=== PATIENT | male | born 1960 | race American Indian/Alaskan Native ===

== ENCOUNTER 2017-02-03 09:51 | Emergency (ER) | payer MEDICARE, MEDICAID ==
[2017-02-03] MEDS ORDERED: Sodium Chloride 0.9% 10 ML Syringe FLUSH PRN (10:10)
--- NOTE | 2017-02-03 10:19 | EDM.PDOC ---
ED HPI GENERAL MEDICAL PROBLEM - General Chief Complaint: Respiratory Problem Stated Complaint: [id number] Pneumonia Time Seen by Provider: 02/03/17 10:04 Source of Information: Reports: Patient, RN, RN Notes Reviewed, Other (staff) History Limitations: Reports: No Limitations - History of Present Illness INITIAL COMMENTS - FREE TEXT/NARRATIVE: Pt presents to the ER with a staff member from his assisted. She states the pt had a temp of 100.4 last evening as well as being pale and diaphoretic. 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 Staff states the pt was seen in the clinic on 01/25/[address] Melendez. He was put on a nasal spray and Augmentin for nasal congestion. Pt denies any pain at this time. Onset: Gradual Onset Date: 02/02/17 Location: Reports: Chest Improves with: Reports: None Worsens with: Reports: None Associated Symptoms: Reports: Chest Pain, Shortness of Breath Middle Chest Pain Score (Numeric/FACES): 2 - Related Data Allergies Allergy/AdvReac Type Severity Reaction Status Date / Time No Known Allergies Allergy Verified 02/03/17 10:14 Home Meds: Home Meds Divalproex Sodium [Depakote] 500 mg PO DAILY 02/03/17 [History] Divalproex Sodium [Depakote] 750 mg PO DAILY 02/03/17 [History] Lisinopril 5 mg PO DAILY 02/03/17 [History] Multivitamin [Multi-Vitamin Daily] 1 tab PO DAILY 02/03/17 [History] traZODone HCl [Trazodone HCl] 100 mg PO DAILY 02/03/17 [History] Past Medical History HEENT History: Reports: Impaired Vision Cardiovascular History: Reports: Hypertension Social & Family History - Tobacco Use Smoking Status *Q: Never Smoker - Caffeine Use Caffeine Use: Reports: Soda - Recreational Drug Use Recreational Drug Use: No ED ROS GENERAL - Review of Systems Review Of Systems: ROS reveals no pertinent complaints other than HPI. ED EXAM, GENERAL - Physical Exam Exam: See Below Exam Limited By: No Limitations General Appearance: Alert, WD/WN, No Apparent Distress Eye Exam: Bilateral Eye: EOMI, Normal Inspection Ears: Normal External Exam, Hearing Grossly Normal Nose: Normal Inspection Throat/Mouth: Normal Inspection, Normal Voice, No Airway Compromise Head: Atraumatic, Normocephalic Neck: Normal Inspection, Supple, Non-Tender, Full Range of Motion Respiratory/Chest: No Respiratory Distress, Lungs Clear, Normal Breath Sounds, No Accessory Muscle Use, Chest Non-Tender Cardiovascular: Normal Peripheral Pulses, Regular Rate, Rhythm, No Edema, No Gallop, No JVD, No Murmur, No Rub Peripheral Pulses: 2+: Radial (L), Radial (R) GI/Abdominal: Normal Bowel Sounds, Soft, Non-Tender, No Organomegaly, No Distention, No Abnormal Bruit, No Mass (Male) Exam: Deferred Rectal (Males) Exam: Deferred Back Exam: Normal Inspection, Full Range of Motion Extremities: Normal Inspection, Normal Range of Motion, Non-Tender, No Pedal Edema, Normal Capillary Refill Neurological: Alert, Oriented, CN II-XII Intact, Normal Cognition, Normal Gait, Normal Reflexes, No Motor/Sensory Deficits Psychiatric: Normal Affect, Normal Mood Skin Exam: Warm, Dry, Intact, Normal Color, No Rash Lymphatic: No Adenopathy EKG INTERPRETATION EKG Date: 02/03/17 Time: 10:10 Rhythm: NSR Rate (Beats/Min): 78 [place]: Normal P-Wave: Present QRS: Normal ST-T: Normal QT: Normal Comparison: NA - No Prior EKG Course - Vital Signs Last Recorded V/S: Last Vital Signs Temp 98.2 F 02/03/17 12:12 Pulse 71 02/03/17 12:12 Resp 16 02/03/17 12:12 BP 129/94 H 02/03/17 12:12 Pulse Ox 92 L 02/03/17 12:12 - Orders/Labs/Meds Orders: Active Orders 24 hr Category Date Time Status EKG Documentation Completion [RC] STAT Care 02/03/17 10:09 Active Peripheral IV Care [RC] . DIRECTED Care 02/03/17 10:10 Active Peripheral IV Insertion Adult [OM.PC] Stat Oth 02/03/17 10:09 Ordered Labs: Laboratory Tests 02/03/17 02/03/17 02/03/17 Range/Units 10:30 10:30 10:30 WBC 8.4 (5.0-10.0) 10^3/uL RBC 4.82 (4.6-6.2) 10^6/uL Hgb 15.3 (14.0-18.0) g/dL Hct 45.5 (40.0-54.0) % MCV 94.4 (80-100) fL MCH 31.7 (27.0-34.0) pg MCHC 33.6 (33.0-35.0) g/dL Plt Count 169 (150-450) 10^3/uL Neut % (Auto) 70.3 (42.2-75.2) % Lymph % (Auto) 17.4 L (20.5-50.1) % [place] % (Auto) 9.9 H (2-8) % Eos % (Auto) 2.0 (1.0-3.0) % Baso % (Auto) 0.4 (0.0-1.0) % PT (9.0-12.0) SEC INR (0.9-1.2) APTT (22.0-34.0) SEC D-Dimer, Quantitative > 5000 H (0-400) ng/mL Sodium 134 L (135-145) mmol/L Potassium 4.2 (3.6-5.0) mmol/L Chloride 98 L (101-111) mmol/L Carbon Dioxide 22.0 (21.0-31.0) mmol/L Anion Gap 18.2 BUN 23 H (7-18) mg/dL Creatinine 1.4 H (0.6-1.3) mg/dL Est Cr Clr Drug Dosing 53.77 mL/min Estimated GFR (MDRD) 52 BUN/Creatinine Ratio 16.42 Glucose 127 H (74-105) mg/dL Calcium 8.5 (8.4-10.2) mg/dl Total Bilirubin 0.7 (0.2-1.0) mg/dL AST 29 (10-42) IU/L ALT 20 (10-60) IU/L Alkaline Phosphatase 40 L (42-121) IU/L Troponin I 0.02 (0.00-0.02) ng/ml Total Protein 6.3 L (6.7-8.2) g/dl Albumin 3.1 L (3.2-5.5) g/dl Globulin 3.2 Albumin/Globulin Ratio 0.97 Urine Color (YELLOW) Urine Appearance (CLEAR) Urine pH (5.0-9.0) Ur Specific [place] (1.005-1.030) Urine Protein (NEGATIVE) Urine Glucose (UA) (NEGATIVE) Urine Ketones (NEGATIVE) Urine Occult Blood (NEGATIVE) Urine Nitrite (NEGATIVE) Urine Bilirubin (NEGATIVE) Urine Urobilinogen (0.2-1.0) mg/dL Ur Leukocyte Esterase (NEGATIVE) Urine RBC /HPF Urine WBC (0-5/HPF) /HPF Ur Epithelial Cells /HPF Amorphous Sediment (0/HPF) /HPF Urine Bacteria (0-FEW/HPF) /HPF Urine Mucus /LPF 02/03/17 02/03/17 02/03/17 Range/Units 10:30 10:30 10:46 WBC (5.0-10.0) 10^3/uL RBC (4.6-6.2) 10^6/uL Hgb (14.0-18.0) g/dL Hct (40.0-54.0) % MCV (80-100) fL MCH (27.0-34.0) pg MCHC (33.0-35.0) g/dL Plt Count (150-450) 10^3/uL Neut % (Auto) (42.2-75.2) % Lymph % (Auto) (20.5-50.1) % [place] % (Auto) (2-8) % Eos % (Auto) (1.0-3.0) % Baso % (Auto) (0.0-1.0) % PT 11.3 (9.0-12.0) SEC INR 1.1 (0.9-1.2) APTT 26.7 (22.0-34.0) SEC D-Dimer, Quantitative (0-400) ng/mL Sodium (135-145) mmol/L Potassium (3.6-5.0) mmol/L Chloride (101-111) mmol/L Carbon Dioxide (21.0-31.0) mmol/L Anion Gap BUN (7-18) mg/dL Creatinine (0.6-1.3) mg/dL Est Cr Clr Drug Dosing mL/min Estimated GFR (MDRD) BUN/Creatinine Ratio Glucose (74-105) mg/dL Calcium (8.4-10.2) mg/dl Total Bilirubin (0.2-1.0) mg/dL AST (10-42) IU/L ALT (10-60) IU/L Alkaline Phosphatase (42-121) IU/L Troponin I (0.00-0.02) ng/ml Total Protein (6.7-8.2) g/dl Albumin (3.2-5.5) g/dl Globulin Albumin/Globulin Ratio Urine Color Yellow (YELLOW) Urine Appearance Clear (CLEAR) Urine pH 5.5 (5.0-9.0) Ur Specific [place] 1.025 (1.005-1.030) Urine Protein 100 H (NEGATIVE) Urine Glucose (UA) Negative (NEGATIVE) Urine Ketones Negative (NEGATIVE) Urine Occult Blood Negative (NEGATIVE) Urine Nitrite Negative (NEGATIVE) Urine Bilirubin Negative (NEGATIVE) Urine Urobilinogen 0.2 (0.2-1.0) mg/dL Ur Leukocyte Esterase Negative (NEGATIVE) Urine RBC 0-5 /HPF Urine WBC 0-5 (0-5/HPF) /HPF Ur Epithelial Cells Rare /HPF Amorphous Sediment Few (0/HPF) /HPF Urine Bacteria Rare (0-FEW/HPF) /HPF Urine Mucus Moderate H /LPF Meds: Medications Discontinued Medications Generic Name Dose Route Start Last Admin Trade Name Freq PRN Reason Stop Dose Admin Heparin Sodium (Porcine) 7,640 units 02/03/17 12:57 02/03/17 13:14 Heparin Sodium IVPUSH 02/03/17 12:58 7,640 units .BOLUS ONE Administration Heparin Sodium/Dextrose 25,000 units in 500 mls @ 0 mls/hr 02/03/17 12:59 13:14 Heparin 25,000 Units In D5w 500 Ml IV 18.01 units/kg/hr TITRATE ADIS 33.4 mls/hr 18 UNITS/KG/HR Administration Iopamidol 100 ml 02/03/17 11:24 02/03/17 11:58 Isovue-370 (76%) IVPUSH 02/03/17 11:25 75 ml ONETIME ONE Administration Sodium Chloride 10 ml 02/03/17 10:10 Saline Flush FLUSH ASDIRECTED PRN Keep Vein Open - Radiology Interpretation Free Text/Narrative:: Chest CT with contrast: PE's found in the the mainstem pulmonary arteries as well as a mass in the left lung apex. See Rad report Departure - Departure Time of Disposition: 13:38 Disposition: DC/Tfer to Acute Hospital 02 Condition: Fair, Serious Clinical Impression: Pulmonary emboli Qualifiers: Pulmonary embolism type: other Chronicity: acute Acute cor pulmonale presence: without acute cor pulmonale Qualified Code(s): I26.99 - Other pulmonary embolism without acute cor pulmonale - Discharge Information Referrals: Jh Blair MD [Primary Care Provider] - Forms: ED Department Discharge, Interfacility Transfer EMTALA - My Orders Last 24 Hours: My Active Orders 02/03/17 10:09 EKG Documentation Completion [RC] STAT Peripheral IV Insertion Adult [OM.PC] Stat 02/03/17 10:10 Peripheral IV Care [RC] . DIRECTED - Assessment/Plan Last 24 Hours: My Active Orders 02/03/17 10:09 EKG Documentation Completion [RC] STAT Peripheral IV Insertion Adult [OM.PC] Stat 02/03/17 10:10 Peripheral IV Care [RC] . DIRECTED
[2017-02-03] MEDS ORDERED: Iopamidol 755 Mg/ML 100 ML Bottle IVPUSH ONE (11:24)
--- NOTE | 2017-02-03 12:16 | CR ---
Clinical history: 56-year-old male chest pain, shortness of breath and serum D dimer greater than 500 0. Interpretation: Coarse accentuation of perihilar lung markings with asymmetrically prominent right hi lum and elevation of the ipsilateral right hemidiaphragm (hepatic flexure of bowel interposed between the liver and hemidiaphragm). Normal cardiac silhouette without alveolar edema or dependent effusion. Mild kyphoscoliosis. Healed fracture deformity posterior lateral right seventh rib. No discrete parenchymal lung nodule or mass lesion and no focal lobar pneumonia or atelectasis/collap se.
--- NOTE | 2017-02-03 12:37 | CT ---
Clinical history: 56-year-old 210 pound male with shortness of breath, chest pain and serum D dimer g reater than 5000. Plain chest radiograph unremarkable. Scan technique: Volume acquisition of data from the chest (bony thorax, lungs and mediastinum) obtain ed during intravenous ministration 75 cc nonionic Isovue 370 contrast via injector (5 cc/s) while pat ient was lying supine on the Siemens multi slice CT scanner [place], [place]. All data archived in the PACS system for storage, reformatting axial/sagittal/coronal planes and study (lung/mediastinal windows). Interpretation: Abnormal. 1. *Extensive intraluminal thrombus compromising the mainstem (first tier) pulmonary arteries, bilate rally and extending into the second tier branches pulmonary arteries to both lower lobes versus encas ement by mediastinal soft tissues (doubtful). 2. Normal cardiac silhouette. No pericardial effusion, signs of alveolar edema or dependent pleural e ffusion. 3. Suspicious 2 cm diameter peripheral parenchymal lung mass, left lung apex. No other lung mass, sig nificant hilar/mediastinal lymphadenopathy, malignant effusion, lobar infiltrate or atelectasis. 4. Normal caliber thoracic aorta. Gallbladder, liver, stomach and spleen unremarkable. CONCLUSION: Pulmonary thrombosis. Mass lesion left lung apex.
[2017-02-03] MEDS ORDERED: Heparin Sodium/D5W 25,000 UNITS/500 ML BAG IV SCH (12:59)
[2017-02-03] MEDS: Heparin Sodium 5,000 Units/ML Vial IVPUSH ONE ×2 (13:06→13:14)
--- NOTE | 2017-02-03 16:21 | EKG ---
02/03/2017 - RUDI MIKE - EKG done on the 56-year-old male, showing sinus rhythm, heart rate of 78 beats per minute. Normal axis. T-wave inversions noted on leads V2 to V4. T wave changes noted on inferior leads. [facility] /[id number] MTDD
== END 2017-02-03 13:30 ==
LOC: DL.ED 09:51
DX: I26.99 Other pulmonary embolism without acute cor pulmonale (principal); I10 Essential (primary) hypertension; Z79.899 Other long term (current) drug therapy
CPT/HCPCS: 36415; 71020; 71260; 80053; 81001; 84484; 85025; 85379; 85610; 85730; 93005; 96365; 96376; 99285; J1644; Q9967; 93010

== ENCOUNTER 2020-02-25 05:49 | Day surgery (SDC) | payer MEDICARE, MEDICAID ==
[2020-02-25] MEDS ORDERED: fentaNYL 100 MCG/2 ML SDV IV ONE ×3 (05:50→07:01)
[2020-02-25] MEDS ORDERED: Midazolam 1 MG/ML 2 ML SDV IV ONE ×3 (05:50→07:02)
[2020-02-25] MEDS ORDERED: Dextrose 5%-0.45% NaCl 1,000 ML IV SCH (06:00)
[2020-02-25] MEDS ORDERED: Sodium Chloride 0.9% 10 ML Syringe FLUSH PRN (06:00)
[2020-02-25] MEDS ORDERED: Midazolam 1 MG/ML 2 ML SDV ONE (06:11)
[2020-02-25] MEDS ORDERED: fentaNYL 100 MCG/2 ML SDV ONE (06:11)
--- NOTE | 2020-02-25 07:58 | OR ---
DATE: 02/25/2020 PROCEDURE: Total colonoscopy. INSTRUMENT USED: [id number]-H190DL Olympus video colonoscope. PREMEDICATIONS: Fentanyl 100 mcg intravenous, Versed 2 mg intravenous, O2 nasal cannula, initially Ventimask used. The procedure was done under pulse oximetry, BP recording, and lunchroom monitor. INDICATION: The patient with previous colon surgery for volvulus with progressive constipation unexplained and not responsive to medical measures. Colonoscopic examination is done for detection of any polypoid lesions and removal, endoscopic hemostasis therapy if needed. DESCRIPTION OF PROCEDURE: Initial rectal exam was unremarkable. Rigid anoscopy showed small internal hemorrhoids without bleeding from them. The colonoscope was passed with ease up to the ileocecal area. Photographs were taken of the normal-appearing cecum identified by landmarks of appendiceal orifice and double- bulged ileocecal folds. No bleeding was noted from any of the visualized areas at the commencement of the examination. The bowel preparation was found to be adequate, [place] scale 3 in the right colon and 2 in transverse and left colon, total score 7. No stricture. No vascular ectasia. No large isolated ulcerations seen. No evidence of diffuse inflammatory bowel disease in the form of friability, contact bleeding, or ulcerations. No polyp or tumor mass identified. Probing the proximal sides of folds and flexures using adequate distention and clearing up the stool material, withdrawal of the scope was made. Cecum to rectum time over 6 minutes. No bleeding was noted from any of the visualized areas at the completion of examination. IMPRESSION: Internal hemorrhoids. The patient tolerated the procedure well. [facility] /[id number]
== END 2020-02-25 09:23 | disposition home or self-care (01) ==
LOC: DL.ENDO 05:49
PROVIDERS: ATTEND Internal Medicine Gastroenterology
DX: K59.00 Constipation, unspecified (principal); K64.8 Other hemorrhoids; I12.9 Hypertensive chronic kidney disease with stage 1 through stage 4 chronic kidney disease, or unspecified chronic kidney disease; N18.9 Chronic kidney disease, unspecified
CPT/HCPCS: J2250; J3010; J7042

== ENCOUNTER 2020-03-04 19:54 | Emergency (ER) | payer MEDICARE, MEDICAID ==
--- NOTE | 2020-03-04 20:20 | EDM.PDOC ---
ED HPI GENERAL MEDICAL PROBLEM - General Time Seen by Provider: 03/04/20 20:00 Source of Information: Reports: Patient, EMS, EMS Notes Reviewed, Old Records, RN, RN Notes Reviewed, Other (Staff from [facility]; Records from [facility]) History Limitations: Reports: Language Barrier - History of Present Illness INITIAL COMMENTS - FREE TEXT/NARRATIVE: Patient presents to the ED via EMS for complaints of chest pain. The patient is a [facility] client who is "checked up" on daily in his home. [facility] staff member who notified EMS is currently present with the patient. She reports he was his normal talkative self this evening and assisted with cooking supper, as per normal. She notes she and the patient were eating supper when she noted he became less responsive and appeared "lyman. She applied his PRN oxygen at 2L but noted minimal improvement in his responsiveness so she called EMS. She notes he is more alert currently than he was at home prior to her calling. The patient reports pain in his chest and shortness of breath that he has felt "..for about one month." He states he has talked to his director about this pain. He denies fever, shaking chills, headache, fatigue, palpitat ions, nausea, or vomiting. He does attest to chronic, mild loose stools. He denies tobacco, alcohol, or recreational drug use. The staff member from [facility] reports the patient has a history of pulmonary embolism for which he takes Jantoven and Adempas. Mid-Sternal Chest Pain Score (Numeric/FACES): 8 - Related Data Allergies Allergy/AdvReac Type Severity Reaction Status Date / Time ibuprofen AdvReac Other Verified 03/04/20 20:00 nitroglycerin AdvReac Other Verified 03/04/20 20:00 Home Meds: Home Meds Divalproex Sodium [Depakote] 500 - 1,000 mg PO .500INAMAND 1000ATHS 02/03/17 [History] Lisinopril 5 mg PO DAILY 02/03/17 [History] traZODone HCl [Trazodone HCl] 100 mg PO DAILY 02/03/17 [History] Carboxymethylcellulose Sodium [Thera Tears] 2 drop EYEBOTH ASDIRECTED 02/21/20 [History] Ciclopirox 1 applic TOP BEDTIME 02/21/20 [History] Multivitamin-Min/Iron/FA/Vit K [Multi-Day Plus Minerals Tablet] 1 tab PO DAILY 02/21/20 [History] Riociguat [Adempas] 2.5 mg PO TID 02/21/20 [History] Warfarin Sodium [Jantoven] 4 mg PO ASDIRECTED 02/21/20 [History] bisacodyL [Bisacodyl] 5 mg PO BEDTIME 02/21/20 [History] levOCARNitine [l-Carnitine] 500 - 1,000 mg PO .[id number] 02/21/20 [History] Past Medical History HEENT History: Reports: Cataract, Impaired Vision Cardiovascular History: Reports: Blood Clots/VTE/DVT, Hypertension Respiratory History: Reports: Sleep Apnea Gastrointestinal History: Reports: Chronic Constipation Genitourinary History: Reports: Chronic Renal Insuffiency EMBEDDED SYSTEMS DEVELOPER History: Musculoskeletal History: Reports: None Neurological History: Reports: None Psychiatric History: Reports: Other (See Below) Other Psychiatric History: bipolar. INTELLECTULAR DISABILITIES Endocrine/Metabolic History: Reports: None Hematologic History: Reports: None Immunologic History: Reports: None Oncologic (Cancer) History: Reports: None Dermatologic History: Reports: None - Infectious Disease History Infectious Disease History: Reports: None Other Infectious Disease History: Health hx unknown, resides at retirement. Had Covid 19 in Oct 2019 - Past Surgical History Head Surgeries/Procedures: Reports: None HEENT Surgical History: Reports: None Cardiovascular Surgical History: Reports: None Respiratory Surgical History: Reports: None GI Surgical History: Reports: None Male Surgical History: Reports: None Neurological Surgical History: Reports: None Musculoskeletal Surgical History: Reports: None Social & Family History - Tobacco Use Tobacco Use Status *Q: Never Tobacco User Second Hand Smoke Exposure: No - Caffeine Use Caffeine Use: Reports: None - Recreational Drug Use Recreational Drug Use: No ED ROS GENERAL - Review of Systems Review Of Systems: Comprehensive ROS is negative, except as noted in HPI. ED EXAM, GENERAL - Physical Exam Exam: See Below Exam Limited By: Other (Hx of cognitive impairment) General Appearance: Alert, No Apparent Distress Eye Exam: Bilateral Eye: EOMI, Normal Inspection, PERRL (4mm) Throat/Mouth: Normal Inspection, Normal Voice, No Airway Compromise Head: Atraumatic, Normocephalic Neck: Normal Inspection, Supple, Non-Tender, Full Range of Motion. No: Lymphadenopathy (L), Lymphadenopathy (R) Respiratory/Chest: No Accessory Muscle Use, Decreased Breath Sounds, Other (On 2L of O2 via NC). No: Chest Non-Tender, Crackles, Rales, Rhonchi, Wheezing, Stridor, Pleural Rub, Accessory Muscle Use Cardiovascular: Normal Peripheral Pulses, Regular Rate, Rhythm, No Edema, No Gallop, No JVD, No Murmur, No Rub Peripheral Pulses: 2+: Radial (L), Radial (R) GI/Abdominal: Normal Bowel Sounds, Soft, Non-Tender, No Distention, No Mass (Male) Exam: Deferred Rectal (Males) Exam: Deferred Back Exam: Normal Inspection, Full Range of Motion Extremities: Normal Range of Motion, No Pedal Edema, Normal Capillary Refill, Elvira's Sign (Patient states pain to the back of both lower extremities; No erythema or edema appreciated) Neurological: Alert, Oriented, Normal Gait, No Motor/Sensory Deficits, Slow to Respond Psychiatric: Normal Mood, Flat Affect Skin Exam: Warm, Dry, Intact, Normal Color, No Rash. No: Ecchymosis, Erythema, Jaundice, Mottled, Pallor, Petechiae, Rash #1 Interpretation EKG Date: 03/04/20 Time: 19:58 Rhythm: NSR Rate (Beats/Min): 73 [place]: LAD-Left [place] Deviation P-Wave: Present QRS: Normal ST-T: Normal QT: Normal Comparison: No Change EKG Interpretation Comments: NSR: T-Wave inversion in V2 and V4: No evidence of acute ischemia Course - Vital Signs Last Recorded V/S: Last Vital Signs Temp 98.4 F 03/04/20 19:54 Pulse 71 03/04/20 19:54 Resp 18 03/04/20 19:54 BP 113/65 03/04/20 19:54 Pulse Ox 91 L 03/04/20 19:54 - Orders/Labs/Meds Orders: Active Orders 24 hr Category Date Time Status EKG Documentation Completion [RC] STAT Care 03/04/20 19:54 Active Labs: Laboratory Tests 03/04/20 03/04/20 03/04/20 Range/Units 20:06 20:06 20:06 WBC 6.5 (5.0-10.0) 10^3/uL RBC 5.06 (4.6-6.2) 10^6/uL Hgb 16.9 D (14.0-18.0) g/dL Hct 47.4 (40.0-54.0) % MCV 93.7 (80-100) fL MCH 33.4 (27.0-34.0) pg MCHC 35.7 H (33.0-35.0) g/dL Plt Count 147 L (150-450) 10^3/uL Neut % (Auto) 57.3 (42.2-75.2) % Lymph % (Auto) 29.1 (20.5-50.1) % Tate % (Auto) 10.5 H (2-8) % Eos % (Auto) 2.6 (1.0-3.0) % Baso % (Auto) 0.5 (0.0-1.0) % PT 29.1 H D (9.0-12.0) SEC INR 3.1 H (0.9-1.2) APTT 32.0 (22.0-34.0) SEC D-Dimer, Quantitative 1930 H (0-400) ng/mL Sodium 137 (136-145) mmol/L Potassium 4.1 (3.5-5.1) mmol/L Chloride 103 (98-107) mmol/L Carbon Dioxide 27 (21-32) mmol/L Anion Gap 11.1 (7-13) mEq/L BUN 21 H (7-18) mg/dL Creatinine 1.28 (0.70-1.30) mg/dL Est Cr Clr Drug Dosing TNP Estimated GFR (MDRD) 57 BUN/Creatinine Ratio 16.4 (No establ ref range) Glucose 97 (74-99) mg/dL Lactic Acid (0.4-2.0) mmol/L Calcium 8.2 L (8.5-10.1) mg/dL Magnesium 1.9 (1.8-2.4) mg/dL Total Bilirubin 0.5 (0.2-1.0) mg/dL AST 11 L (15-37) U/L ALT 21 (16-63) U/L Alkaline Phosphatase 52 (46-116) U/L Lactate Dehydrogenase 212 (85-227) U/L Troponin I < 0.017 (0.000-0.056) ng/mL C-Reactive Protein < 0.2 (0.0-0.9) mg/dL B-Natriuretic Peptide 6 (0-100) pg/ml Total Protein 6.7 (6.4-8.2) g/dL Albumin 3.4 (3.4-5.0) g/dL Globulin 3.3 Albumin/Globulin Ratio 1.0 01/26/21 Range/Units 20:06 WBC (5.0-10.0) 10^3/uL RBC (4.6-6.2) 10^6/uL Hgb (14.0-18.0) g/dL Hct (40.0-54.0) % MCV (80-100) fL MCH (27.0-34.0) pg MCHC (33.0-35.0) g/dL Plt Count (150-450) 10^3/uL Neut % (Auto) (42.2-75.2) % Lymph % (Auto) (20.5-50.1) % Tate % (Auto) (2-8) % Eos % (Auto) (1.0-3.0) % Baso % (Auto) (0.0-1.0) % PT (9.0-12.0) SEC INR (0.9-1.2) APTT (22.0-34.0) SEC D-Dimer, Quantitative (0-400) ng/mL Sodium (136-145) mmol/L Potassium (3.5-5.1) mmol/L Chloride (98-107) mmol/L Carbon Dioxide (21-32) mmol/L Anion Gap (7-13) mEq/L BUN (7-18) mg/dL Creatinine (0.70-1.30) mg/dL Est Cr Clr Drug Dosing Estimated GFR (MDRD) BUN/Creatinine Ratio (No establ ref range) Glucose (74-99) mg/dL Lactic Acid 2.0 (0.4-2.0) mmol/L Calcium (8.5-10.1) mg/dL Magnesium (1.8-2.4) mg/dL Total Bilirubin (0.2-1.0) mg/dL AST (15-37) U/L ALT (16-63) U/L Alkaline Phosphatase (46-116) U/L Lactate Dehydrogenase (85-227) U/L Troponin I (0.000-0.056) ng/mL C-Reactive Protein (0.0-0.9) mg/dL B-Natriuretic Peptide (0-100) pg/ml Total Protein (6.4-8.2) g/dL Albumin (3.4-5.0) g/dL Globulin Albumin/Globulin Ratio Meds: Medications Discontinued Medications Generic Name Dose Route Start Last Admin Trade Name Freq PRN Reason Stop Dose Admin Al Hydroxide/Mg Hydroxide 30 ml 03/04/20 20:34 03/04/20 20:43 Gi Cocktail PO 03/04/20 20:35 30 ml ONETIME ONE Administration - Radiology Interpretation Free Text/Narrative:: [facility] Final Radiology Report with Addendum Call: [phone] assistance Online chat: [email or web address] Name: RUDI MIKE Age: 59Years M Date: 03/04/2020 SSN: -- : 1960 Study: CT CHEST W CONT Requesting Physician: Georgia Ma Images: [id number] Addl Studies: Provided Clinical History: Chest pain; Hx Pulmonary embolism; D-Dimer 193 Contrast: With Contrast Medium: isovue 370 Contrast Amount: 75 mL Contrast Method: Intravenous (IV) Page 1 of 2 Addendum created by Joni Contreras MD on 03/04/2020 9:57 PM Central Time ([place] & [place]): THIS REPORT CONTAINS FINDINGS THAT MAY BE CRITICAL TO PATIENT CARE. The findings were verbally communicated via telephone conference with Georgia Ma at 9:56 PM RADIO PRODUCER on 03/04/2020. The findings were acknowledged and understood. Initial Report created on 03/04/2020 9:54 PM Central Time ([place] & [place]): PROCEDURE INFORMATION: Exam: CT Chest With Contrast; Diagnostic Exam date and time: 03/04/2020 9:26 PM Age: 59 years old Clinical indication: Other: Chest pain; HX pulmonary embolism; D-dimer 1930 TECHNIQUE: Imaging protocol: Diagnostic computed tomography of the chest with intravenous contrast. Radiation optimization: All CT scans at this facility use at least one of these dose optimization techniques: automated exposure control; mA and/or kV adjustment per patient size (includes targeted exams where dose is matched to clinical indication); or iterative reconstruction. Contrast material: ISOVUE 370; Contrast volume: 75 ml; Contrast route: INTRAVENOUS (IV); COMPARISON: No relevant prior studies available. FINDINGS: Lungs: No significant ground-glass densities, linear interstitial pulmonary thickening, or consolidation. Pleural space: There is no significant effusion. No pneumothorax. No mass, plaque or calcification. Heart: Normal heart size. No pericardial effusion. Pulmonary arteries: Eccentric soft tissue along left and left inter lobar pulmonary arteries. Soft tissue obliteration of left lower lobe pulmonary arteries. Eccentric soft tissue along right inter lobar RUDI MIKE | Final Radiology Report CONFIDENTIALITY STATEMENT This report is intended only for use by the referring physician, and only in accordance with law. If you received this in error, call [phone]. Page 2 of 2 pulmonary artery. There is central prominance of the pulmonary arterial tree consistent with longstanding pulmonary artery hypertension. Aorta: No aortic aneurysm. Lymph nodes: No enlarged axillary, mediastinal, or hilar lymph nodes. Stomach and bowel: Stomach is markedly distended with heterogeneous material, presumably food. Dilation of transverse colon to 7 cm. Bones/joints: Age appropriate. No acute fracture. No suspicious lytic or osteosclerotic lesions. Soft tissues: Unremarkable. IMPRESSION: 1. Findings are most consistent with subacute bilateral pulmonary embolism. 2. No saddle embolus or right heart strain. 3. Signs of chronic pulmonary artery hypertension. Thank you for allowing us to participate in the care of your patient. Dictated and Authenticated by: Joni Contreras MD 03/04/2020 9:54 PM Central Time ([place] & [place]) - Re-Assessments/Exams Free Text/Narrative Re-Assessment/Exam: 03/04/20 Patient given three doses of Nitro en route via EMS. Patient scheduled to receive Adempas at 2200, will instruct care givers to hold this medication tonight. Patient continues to voice complaints of pain to the chest that he characterizes as "sharp," will attempt GI Cocktail as he was eating when this pain began. Blood pressure remains stable at 108/73(74). EKG reveal NSR with LAD. Troponin negative. D-Dimer elevated at 1930; review of records from 2018 shows complete resolution of previous PEs. Review of records from [facility] appears to show that the patient has not gotten his Jantoven for five days. INR remains appropriate at 3.1. Will obtain PE study given elevated d-dimer and physical exam. Patient notes an improvement in pain following GI cocktail. PE study reveals areas consistent with subacute pulmonary embolism in the left lobar pulmonary arteries. [facility] director at beside with patient, given results of PE study and labs. 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 Departure - Departure Time of Disposition: 22:06 Disposition: Home, Self-Care 01 Condition: Good Clinical Impression: Heartburn, Elevated d-dimer Chronic pulmonary embolism Qualifiers: Pulmonary embolism type: other Acute cor pulmonale presence: without acute cor pulmonale Qualified Code(s): I27.82 - Chronic pulmonary embolism Instructions: Essence, [id number] Additional Instructions: 1.) Keep your appointment with your provider at the [facility] for March 24. 2.) Do not take your Adempas tonight; restart this medication tomorrow morning. 3.) You may trial tums or Pepcid if this pain returns while eating. 4.) Return to your primary care provider, or the emergency room, with any chest pain or shortness of breath that does not improve with medications. Sepsis Event Note (ED) - Evaluation Sepsis Screening Result: No Definite Risk - Focused Exam Vital Signs: Vital Signs Temp Pulse Resp BP Pulse Ox 03/04/20 19:54 98.4 F 71 18 113/65 91 L - My Orders Last 24 Hours: My Active Orders 03/04/20 19:54 EKG Documentation Completion [RC] STAT - Assessment/Plan Last 24 Hours: My Active Orders 03/04/20 19:54 EKG Documentation Completion [RC] STAT
[2020-03-04 20:41] LABS: ANION GAP 11.1 mEq/L (7-13); CHLORIDE,CL 103 mmol/L (98-107); SODIUM,NA 137 mmol/L (136-145)
[2020-03-04] MEDS: GI Cocktail Oral Solution 30 ML PO ONE (20:43)
[2020-03-04] MEDS: Iopamidol 755 Mg/ML 100 ML Bottle IVPUSH ONE (21:26)
--- NOTE | 2020-03-04 21:54 | CT ---
PROCEDURE INFORMATION: Exam: CT Chest With Contrast; Diagnostic Exam date and time: 03/04/2020 9:26 PM Age: 59 years old Clinical indication: Other: Chest pain; HX pulmonary embolism; D-dimer 1930 TECHNIQUE: Imaging protocol: Diagnostic computed tomography of the chest with intravenous contrast. Radiation optimization: All CT scans at this facility use at least one of these dose optimization techniques: automated exposure control; mA and/or kV adjustment per patient size (includes targeted exams where dose is matched to clinical indication); or iterative reconstruction. Contrast material: ISOVUE 370; Contrast volume: 75 ml; Contrast route: INTRAVENOUS (IV); COMPARISON: No relevant prior studies available. FINDINGS: Lungs: No significant ground-glass densities, linear interstitial pulmonary thickening, or consolidation. Pleural space: There is no significant effusion. No pneumothorax. No mass, plaque or calcification. Heart: Normal heart size. No pericardial effusion. Pulmonary arteries: Eccentric soft tissue along left and left inter lobar pulmonary arteries. Soft tissue obliteration of left lower lobe pulmonary arteries. Eccentric soft tissue along right inter lobar pulmonary artery. There is central prominance of the pulmonary arterial tree consistent with longstanding pulmonary artery hypertension. Aorta: No aortic aneurysm. Lymph nodes: No enlarged axillary, mediastinal, or hilar lymph nodes. Stomach and bowel: Stomach is markedly distended with heterogeneous material, presumably food. Dilation of transverse colon to 7 cm. Bones/joints: Age appropriate. No acute fracture. No suspicious lytic or osteosclerotic lesions. Soft tissues: Unremarkable. IMPRESSION: 1. Findings are most consistent with subacute bilateral pulmonary embolism. 2. No saddle embolus or right heart strain. 3. Signs of chronic pulmonary artery hypertension.
== END 2020-03-04 22:13 | disposition home or self-care (01) ==
LOC: DL.ED 19:54
DX: I27.82 Chronic pulmonary embolism (principal); R12 Heartburn; R79.1 Abnormal coagulation profile; I12.9 Hypertensive chronic kidney disease with stage 1 through stage 4 chronic kidney disease, or unspecified chronic kidney disease; N18.9 Chronic kidney disease, unspecified; Z88.6 Allergy status to analgesic agent; Z88.8 Allergy status to other drugs, medicaments and biological substances; Z79.01 Long term (current) use of anticoagulants; Z79.899 Other long term (current) drug therapy
CPT/HCPCS: 36415; 71260; 80053; 83605; 83615; 83735; 83880; 84484; 85025; 85379; 85610; 85730; 86140; 93005; 93010; 99284; 99285; A9270; Q9967

== ENCOUNTER 2021-12-11 22:14 | Emergency (ER) | payer MEDICARE, MEDICAID ==
[2021-12-11 23:09] LABS: ANION GAP 12.4 mEq/L (7-13); CHLORIDE,CL 103 mmol/L (98-107); SODIUM,NA 138 mmol/L (136-145)
[2021-12-11 23:12] LABS: ESTIMATED GFR 54 mL/min (>=60)
[2021-12-11 23:31] LABS: CORONAVIRUS COVID-19 NAA POSITIVE (NEGATIVE)
[2021-12-12] MEDS ORDERED: Furosemide 40 MG/4 ML VIAL IVPUSH ONE (00:40)
[2021-12-12] MEDS ORDERED: Iopamidol 755 Mg/ML 100 ML Bottle IVPUSH ONE (00:41)
[2021-12-12] MEDS ORDERED: Heparin Sodium 5,000 Units/ML Vial IVPUSH ONE (05:11)
[2021-12-12] MEDS ORDERED: Heparin Sodium/0.45% NaCl 25,000 UNITS/500 ML BAG IV SCH (05:15)
[2021-12-12] MEDS ORDERED: Dexamethasone 4 MG/ML SDV IVPUSH ONE (05:25)
== END 2021-12-12 08:20 ==
LOC: DL.ED 22:14
DX: U07.1 COVID-19 (principal); I26.99 Other pulmonary embolism without acute cor pulmonale; G31.84 Mild cognitive impairment of uncertain or unknown etiology; I10 Essential (primary) hypertension; Z88.6 Allergy status to analgesic agent; Z88.8 Allergy status to other drugs, medicaments and biological substances; Z79.899 Other long term (current) drug therapy; Z79.01 Long term (current) use of anticoagulants
CPT/HCPCS: 0240U; 36415; 71045; 71275; 80053; 82150; 83605; 83615; 83690; 83735; 83880; 84484; 85025; 85379; 85610; 85730; 86140; 87040; 93005; 96365; 96366; 96375; 96376; 99285; J1100; J1644; J1940; Q9967

== ENCOUNTER 2023-01-11 08:59 | Observation (INO) | payer MEDICARE, MEDICAID ==
[2023-01-11] MEDS ORDERED: Sodium Chloride 0.9% 1,000 ML IV ONE (09:04)
[2023-01-11] MEDS ORDERED: Ondansetron 4 MG/2 ML SDV IV ONE (09:04)
[2023-01-11] MEDS: Sodium Chloride 0.9% 10 ML Syringe FLUSH PRN (09:15)
[2023-01-11 09:36] LABS: INR 4.2 (0.9-1.2)
[2023-01-11 09:41] LABS: BASOPHILS PERCENT AUTO 0.2 % (0.0-1.0); EOSINOPHILS PERCENT AUTO 1.2 % (1.0-3.0); HEMATOCRIT 44.8 % (40.0-54.0); HEMOGLOBIN 15.7 g/dL (14.0-18.0); LYMPHOCYTES PERCENT AUTO 22.3 % (20.5-50.1); MEAN CORPUSCULAR HEMOGLOBIN 34.2 pg (27.0-34.0); MEAN CORPUSCULAR VOLUME 97.6 fL (80-100); MONOCYTES PERCENT AUTO 11.3 % (2-8); PLATELET COUNT,PLT 66 10^3/uL (150-450); RED BLOOD CELL COUNT 4.59 10^6/uL (4.6-6.2)
[2023-01-11 09:45] LABS: ALANINE AMINOTRANSFERASE,ALT 15 U/L (16-63); ALBUMIN 2.9 g/dL (3.4-5.0); ALKALINE PHOSPHATASE 56 U/L (46-116); ANION GAP 11.8 mEq/L (7-13); ASPARTATE AMNIOTRANSFERASE,AST 19 U/L (15-37); BILIRUBIN TOTAL 0.5 mg/dL (0.2-1.0); BLOOD UREA NITROGEN,BUN 19 mg/dL (7-18); BUN/CREATININE RATIO 13.3 (No establ ref range); CALCIUM 8.4 mg/dL (8.5-10.1); CARBON DIOXIDE,CO2 25 mmol/L (21-32); CHLORIDE,CL 102 mmol/L (98-107); CREATININE 1.43 mg/dL (0.70-1.30); EST CRCL DRUG DOSING (CG) 48.79 mL/min; GLUCOSE RANDOM 126 mg/dL (70-99); LIPASE 24 U/L (16-77); MAGNESIUM 1.5 mg/dL (1.8-2.4); POTASSIUM,K 3.8 mmol/L (3.5-5.1); PROTEIN TOTAL,TP 6.4 g/dL (6.4-8.2); SODIUM,NA 135 mmol/L (136-145)
[2023-01-11 09:52] LABS: A/G RATIO 0.83; ESTIMATED GFR 55 mL/min (>=60)
[2023-01-11 09:53] LABS: LACTIC ACID 2.4 mmol/L (0.4-2.0)
[2023-01-11] MEDS ORDERED: Magnesium Sulfate/Water 2 GM in Premix Bag 1 BAG IV ONE (09:55)
[2023-01-11] MEDS ORDERED: Iopamidol 612 MG/ML 100 ML Bottle IVPUSH ONE (09:56)
[2023-01-11] MEDS ORDERED: NS with KCl 40mEq 1,000 ML IV SCH (10:00)
[2023-01-11] MEDS ORDERED: Magnesium Sulfate/Water 50 ML ONE (10:01)
[2023-01-11 10:12] LABS: CORONAVIRUS COVID-19 NAA NEGATIVE (NEGATIVE); INFLUENZA A NAA NEGATIVE (NEGATIVE); INFLUENZA B NAA NEGATIVE (NEGATIVE); RESPIRATORY SYNCYTIAL VIR NAA NEGATIVE (NEGATIVE)
[2023-01-11 12:58] LABS: APPEARANCE,URINE CLEAR (CLEAR); BILIRUBIN,URINE NEGATIVE (NEGATIVE); COLOR,URINE YELLOW (YELLOW); GLUCOSE,URINE NEGATIVE (NEGATIVE); KETONES,URINE NEGATIVE (NEGATIVE); LEUKOCYTE ESTERASE,URINE NEGATIVE (NEGATIVE); NITRITE,URINE NEGATIVE (NEGATIVE); OCCULT BLOOD,URINE NEGATIVE (NEGATIVE); PROTEIN,URINE NEGATIVE (NEGATIVE); UROBILINOGEN,URINE 0.2 mg/dL (0.2-1.0)
[2023-01-11] MEDS ORDERED: Acetaminophen 325 MG Tab PO PRN (14:23)
[2023-01-11] MEDS ORDERED: Magnesium Hydroxide 400 MG/5 ML Susp 30 ML Cup PO PRN (14:23)
[2023-01-11] MEDS ORDERED: HYDROmorphone 0.5 MG/0.5 ML Syringe IVPUSH PRN (14:23)
[2023-01-11] MEDS ORDERED: Sennosides/Docusate Sodium 50-8.6 MG Tab PO PRN (14:23)
[2023-01-11] MEDS ORDERED: Ketorolac 30 MG/ML SDV IVPUSH PRN (14:23)
[2023-01-11] MEDS ORDERED: Naloxone 2 MG/2 ML Syringe IVPUSH PRN (14:23)
[2023-01-11] MEDS ORDERED: Polyethylene Glycol 3350 Powder 17 GM Packet PO PRN (14:23)
[2023-01-11] MEDS ORDERED: Benzocaine 20% Topical Spray UD MUCMEM ONE (14:25)
[2023-01-11] MEDS ORDERED: 50% Dextrose in Water 50 ML Syringe IVPUSH PRN (14:27)
[2023-01-11] MEDS ORDERED: Glucagon,Human Recombinant 1 MG Vial IM PRN (14:27)
[2023-01-11] MEDS ORDERED: Metoclopramide 10 MG/2 ML SDV IVPUSH ONE (14:42)
[2023-01-11] MEDS ORDERED: Pantoprazole 40 MG Vial IVPUSH ONE (14:44)
[2023-01-11] MEDS: Dextrose 5%-0.9% NaCl 1,000 ML IV SCH (15:59)
[2023-01-11] MEDS ORDERED: Carboxymethylcellulose Sodium 1% Ophth Gel 0.4 ML UD EYEBOTH PRN (16:31)
[2023-01-11] MEDS: Insulin Lispro 100 Units/ML 3 ML Vial SUBCUT SCH ×2 (16:47→21:07)
[2023-01-11] MEDS: Metoclopramide 10 MG/2 ML SDV IVPUSH SCH ×2 (17:24→23:26)
[2023-01-11] MEDS: Carboxymethylcellulose Sodium 1% Ophth Gel 0.4 ML UD EYEBOTH SCH (18:36)
[2023-01-11] MEDS ORDERED: Divalproex Sodium Delayed-Release 250 MG Tab.CR PO SCH (21:00)
[2023-01-11] MEDS ORDERED: traZODone 50 MG Tab PO SCH (21:00)
[2023-01-11] MEDS: ADEMPAS 2.5 MG PO SCH (22:25)
[2023-01-11] MEDS: Albuterol/Ipratropium 3.0-0.5 MG/3 ML Neb Soln NEB PRN (23:35)
[2023-01-12] MEDS ORDERED: Pantoprazole 40 MG Vial IVPUSH SCH
[2023-01-12] MEDS ORDERED: Lactated Ringers 1,000 ML IV ONE (02:08)
[2023-01-12] MEDS: Pantoprazole 80 MG in Sodium Chloride 0.9% 100 ML IV SCH ×5 (02:34→23:25)
[2023-01-12] MEDS: Sucralfate Suspension 1 GM/10 ML Cup PO SCH ×6 (02:40→23:11)
[2023-01-12] MEDS: Insulin Lispro 100 Units/ML 3 ML Vial SUBCUT SCH ×4 (02:51→23:06)
[2023-01-12] MEDS ORDERED: Albuterol/Ipratropium 3.0-0.5 MG/3 ML Neb Soln NEB SCH ×2 (06:00→18:00)
[2023-01-12] MEDS: Sodium Chloride 0.9% 10 ML Syringe FLUSH PRN (06:05)
[2023-01-12] MEDS: Metoclopramide 10 MG/2 ML SDV IVPUSH SCH ×4 (06:05→22:55)
[2023-01-12 06:32] LABS: BASOPHILS PERCENT AUTO 0.1 % (0.0-1.0); EOSINOPHILS PERCENT AUTO 0.7 % (1.0-3.0); HEMATOCRIT 41.4 % (40.0-54.0); HEMOGLOBIN 14.6 g/dL (14.0-18.0); MEAN CORPUSCULAR HEMOGLOBIN 34.4 pg (27.0-34.0); MEAN CORPUSCULAR HGB CONC 35.3 g/dL (33.0-35.0); MEAN CORPUSCULAR VOLUME 97.6 fL (80-100); MONOCYTES PERCENT AUTO 16.4 % (2-8); NEUTROPHILS PERCENT AUTO 69.8 % (42.2-75.2); PLATELET COUNT,PLT 61 10^3/uL (150-450); RED BLOOD CELL COUNT 4.24 10^6/uL (4.6-6.2); WHITE BLOOD CELL COUNT,WBC 8.5 10^3/uL (5.0-10.0)
[2023-01-12] MEDS: Albuterol/Ipratropium 3.0-0.5 MG/3 ML Neb Soln NEB PRN ×3 (06:41→15:00)
[2023-01-12 07:02] LABS: ALBUMIN 2.4 g/dL (3.4-5.0); ANION GAP 11.3 mEq/L (7-13); BILIRUBIN TOTAL 0.5 mg/dL (0.2-1.0); BUN/CREATININE RATIO 12.6 (No establ ref range); C-REACTIVE PROTEIN 1.67 ng/dL (<=0.50); CALCIUM 7.8 mg/dL (8.5-10.1); CREATININE 1.11 mg/dL (0.70-1.30); EST CRCL DRUG DOSING (CG) 62.86 mL/min; MAGNESIUM 1.8 mg/dL (1.8-2.4); POTASSIUM,K 3.3 mmol/L (3.5-5.1); PROTEIN TOTAL,TP 5.3 g/dL (6.4-8.2)
[2023-01-12 07:05] LABS: A/G RATIO 0.83
[2023-01-12] MEDS ORDERED: Potassium Chloride 20 MEQ in Premix Bag 1 BAG IV ONE ×3 (07:22→16:00)
[2023-01-12] MEDS ORDERED: Magnesium Sulfate/Water 2 GM in Premix Bag 1 BAG IV ONE (07:23)
[2023-01-12 15:27] LABS: HEMATOCRIT 41.2 % (40.0-54.0); HEMOGLOBIN 14.5 g/dL (14.0-18.0)
[2023-01-12] MEDS ORDERED: Furosemide 20 MG/2 ML VIAL IVPUSH ONE (15:38)
[2023-01-12] MEDS: Carboxymethylcellulose Sodium 1% Ophth Gel 0.4 ML UD EYEBOTH SCH (15:54)
[2023-01-12] MEDS: Albuterol/Ipratropium 3.0-0.5 MG/3 ML Neb Soln NEB SCH ×2 (17:03→22:56)
[2023-01-12] MEDS ORDERED: traZODone 50 MG Tab PO PRN (18:49)
[2023-01-12] MEDS: Dextrose 5%-0.9% NaCl 1,000 ML IV SCH (18:55)
[2023-01-13] MEDS: Metoclopramide 10 MG/2 ML SDV IVPUSH SCH ×4 (02:15→13:14)
[2023-01-13] MEDS: Insulin Lispro 100 Units/ML 3 ML Vial SUBCUT SCH ×3 (02:22→14:19)
[2023-01-13] MEDS: Albuterol/Ipratropium 3.0-0.5 MG/3 ML Neb Soln NEB SCH ×5 (02:23→15:49)
[2023-01-13] MEDS: Pantoprazole 80 MG in Sodium Chloride 0.9% 100 ML IV SCH ×2 (05:35→16:01)
[2023-01-13] MEDS: Piperacillin/Tazobactam 3.375 GM in Sodium Chloride 0.9% 100 ML IV SCH ×2 (05:39→13:27)
[2023-01-13] MEDS: Sucralfate Suspension 1 GM/10 ML Cup PO SCH ×4 (05:40→13:41)
[2023-01-13 06:16] LABS: BASOPHILS PERCENT AUTO 0.1 % (0.0-1.0); EOSINOPHILS PERCENT AUTO 0.1 % (1.0-3.0); HEMATOCRIT 43.5 % (40.0-54.0); HEMOGLOBIN 14.8 g/dL (14.0-18.0); LYMPHOCYTES PERCENT AUTO 7.4 % (20.5-50.1); MEAN CORPUSCULAR HEMOGLOBIN 33.2 pg (27.0-34.0); MEAN CORPUSCULAR VOLUME 97.5 fL (80-100); MONOCYTES PERCENT AUTO 13.5 % (2-8); NEUTROPHILS PERCENT AUTO 78.9 % (42.2-75.2); PLATELET COUNT,PLT 56 10^3/uL (150-450); RED BLOOD CELL COUNT 4.46 10^6/uL (4.6-6.2); WHITE BLOOD CELL COUNT,WBC 9.4 10^3/uL (5.0-10.0)
[2023-01-13 06:48] LABS: ALBUMIN 2.5 g/dL (3.4-5.0); ANION GAP 9.4 mEq/L (7-13); BILIRUBIN TOTAL 0.9 mg/dL (0.2-1.0); CALCIUM 7.9 mg/dL (8.5-10.1); CREATININE 1.2 mg/dL (0.70-1.30); EST CRCL DRUG DOSING (CG) 58.14 mL/min; MAGNESIUM 1.7 mg/dL (1.8-2.4); POTASSIUM,K 3.4 mmol/L (3.5-5.1); PROTEIN TOTAL,TP 5.7 g/dL (6.4-8.2)
[2023-01-13 06:59] LABS: A/G RATIO 0.78
[2023-01-13] MEDS ORDERED: Non-Formulary Medication 1 Each PO SCH (07:00)
[2023-01-13 07:24] LABS: INR 3.1 (0.9-1.2); PROTHROMBIN TIME 30.8 SEC (9.0-12.0)
[2023-01-13] MEDS: Carboxymethylcellulose Sodium 1% Ophth Gel 0.4 ML UD EYEBOTH SCH (10:43)
[2023-01-13] MEDS: ADEMPAS 2.5 MG PO SCH ×2 (10:45→14:37)
[2023-01-13] MEDS ORDERED: Phytonadione 5 MG in Sodium Chloride 0.9% 50 ML IV ONE (14:49)
== END 2023-01-13 17:10 ==
LOC: DL.ED 08:59 → DL.MS 11:47 → DL.ED 12:15
PROVIDERS: ADMIT Internal Medicine; ATTEND Internal Medicine
DX: K56.7 Ileus, unspecified (principal); R09.02 Hypoxemia; D69.6 Thrombocytopenia, unspecified; E87.1 Hypo-osmolality and hyponatremia; I10 Essential (primary) hypertension; N17.9 Acute kidney failure, unspecified; E83.42 Hypomagnesemia; E88.09 Other disorders of plasma-protein metabolism, not elsewhere classified; E87.20 Acidosis, unspecified; Z20.822 Contact with and (suspected) exposure to COVID-19; Z79.01 Long term (current) use of anticoagulants; Z79.899 Other long term (current) drug therapy
CPT/HCPCS: 0241U; 36415; 70450; 71045; 74018; 74177; 80053; 81003; 82947; 83605; 83690; 83735; 84145; 84484; 85014; 85018; 85025; 85610; 86140; 87040; 93005; 93010; 94640; 94760; 94762; 99284; A9270; C9113; J1940; J2405; J2543; J2765; J3430; J3475; J3480; J3490; J7030; J7042; J7120; Q9967; 96361; 96365; 96366; 96367; 96368; 96372; 96375; 96376; 99285-25; G0378; J7620-GY

== ENCOUNTER 2023-06-20 15:13 | Emergency (ER) | payer MEDICARE, MEDICAID ==
[2023-06-20 15:45] LABS: BASOPHILS PERCENT AUTO 0.1 % (0.0-1.0); EOSINOPHILS PERCENT AUTO 0.7 % (1.0-3.0); HEMATOCRIT 47.7 % (40.0-54.0); HEMOGLOBIN 16.3 g/dL (14.0-18.0); LYMPHOCYTES PERCENT AUTO 24.7 % (20.5-50.1); MEAN CORPUSCULAR HEMOGLOBIN 32.5 pg (27.0-34.0); MEAN CORPUSCULAR HGB CONC 34.2 g/dL (33.0-35.0); MONOCYTES PERCENT AUTO 17.8 % (2-8); NEUTROPHILS PERCENT AUTO 56.7 % (42.2-75.2); PLATELET COUNT,PLT 115 10^3/uL (150-450); RED BLOOD CELL COUNT 5.02 10^6/uL (4.6-6.2); WHITE BLOOD CELL COUNT,WBC 7.1 10^3/uL (5.0-10.0)
[2023-06-20 16:21] LABS: INR 3.3 (0.9-1.2); PROTHROMBIN TIME 31.9 SEC (9.0-12.0)
[2023-06-20 16:22] LABS: A/G RATIO 0.66; ALBUMIN 3.1 g/dL (3.4-5.0); ANION GAP 13.6 mEq/L (7-13); BILIRUBIN TOTAL 0.7 mg/dL (0.2-1.0); BUN/CREATININE RATIO 13.8 (No establ ref range); CALCIUM 8.7 mg/dL (8.5-10.1); CREATININE 1.3 mg/dL (0.70-1.30); EST CRCL DRUG DOSING (CG) 62.18 mL/min; POTASSIUM,K 3.6 mmol/L (3.5-5.1); PROTEIN TOTAL,TP 7.8 g/dL (6.4-8.2)
[2023-06-20 16:28] LABS: CORONAVIRUS COVID-19 NAA NEGATIVE (NEGATIVE); INFLUENZA A NAA NEGATIVE (NEGATIVE); INFLUENZA B NAA NEGATIVE (NEGATIVE); RESPIRATORY SYNCYTIAL VIR NAA NEGATIVE (NEGATIVE)
[2023-06-20 17:08] LABS: APPEARANCE,URINE CLEAR (CLEAR); BILIRUBIN,URINE NEGATIVE (NEGATIVE); COLOR,URINE DARK YELLOW (YELLOW); GLUCOSE,URINE NEGATIVE (NEGATIVE); KETONES,URINE NEGATIVE (NEGATIVE); LEUKOCYTE ESTERASE,URINE NEGATIVE (NEGATIVE); NITRITE,URINE NEGATIVE (NEGATIVE); OCCULT BLOOD,URINE NEGATIVE (NEGATIVE); PH,URINE 5.5 (5.0-9.0); PROTEIN,URINE NEGATIVE (NEGATIVE); UROBILINOGEN,URINE 0.2 mg/dL (0.2-1.0)
[2023-06-20] MEDS: Lactated Ringers 1,000 ML IV ONE (17:21)
[2023-06-20 17:49] LABS: MAGNESIUM 1.8 mg/dL (1.8-2.4)
== END 2023-06-20 18:21 | disposition other institution (70) ==
LOC: DL.ED 15:13
DX: R09.02 Hypoxemia (principal); I12.9 Hypertensive chronic kidney disease with stage 1 through stage 4 chronic kidney disease, or unspecified chronic kidney disease; N18.9 Chronic kidney disease, unspecified; Z86.16 Personal history of COVID-19; Z79.899 Other long term (current) drug therapy; Z79.01 Long term (current) use of anticoagulants; Z88.8 Allergy status to other drugs, medicaments and biological substances
CPT/HCPCS: 0241U; 36415; 71045; 80053; 80307; 81003; 83605; 83735; 84484; 85025; 85610; 93005; 96360; 99285; J7120

== ENCOUNTER 2023-09-14 15:04 | Emergency (ER) | payer MEDICARE, MEDICAID ==
[2023-09-14 16:06] LABS: BASOPHILS PERCENT AUTO 0.2 % (0.0-1.0); EOSINOPHILS PERCENT AUTO 1.4 % (1.0-3.0); HEMATOCRIT 47.4 % (40.0-54.0); HEMOGLOBIN 16.2 g/dL (14.0-18.0); LYMPHOCYTES PERCENT AUTO 24.1 % (20.5-50.1); MEAN CORPUSCULAR HEMOGLOBIN 32.4 pg (27.0-34.0); MEAN CORPUSCULAR HGB CONC 34.2 g/dL (33.0-35.0); MEAN CORPUSCULAR VOLUME 94.8 fL (80-100); MONOCYTES PERCENT AUTO 19.7 % (2-8); NEUTROPHILS PERCENT AUTO 54.6 % (42.2-75.2); PLATELET COUNT,PLT 155 10^3/uL (150-450); WHITE BLOOD CELL COUNT,WBC 6.7 10^3/uL (5.0-10.0)
[2023-09-14 16:22] LABS: ALBUMIN 2.7 g/dL (3.4-5.0); ANION GAP 16.1 mEq/L (7-13); BILIRUBIN TOTAL 0.6 mg/dL (0.2-1.0); CALCIUM 8.8 mg/dL (8.5-10.1); CREATININE 1.07 mg/dL (0.70-1.30); EST CRCL DRUG DOSING (CG) 75.55 mL/min; MAGNESIUM 1.8 mg/dL (1.8-2.4); POTASSIUM,K 5.1 mmol/L (3.5-5.1); PROTEIN TOTAL,TP 6.6 g/dL (6.4-8.2)
[2023-09-14 16:30] LABS: INR 3.2 (0.9-1.2); PROTHROMBIN TIME 30.8 SEC (9.0-12.0); PTT,PARTIAL THROMBOPLSTIN TIME 37.7 SEC (22.0-34.0)
[2023-09-14 16:33] LABS: A/G RATIO 0.69
== END 2023-09-14 17:30 | disposition home or self-care (01) ==
LOC: DL.ED 15:04
DX: R79.1 Abnormal coagulation profile (principal); I12.9 Hypertensive chronic kidney disease with stage 1 through stage 4 chronic kidney disease, or unspecified chronic kidney disease; N18.9 Chronic kidney disease, unspecified; Z88.8 Allergy status to other drugs, medicaments and biological substances; Z79.01 Long term (current) use of anticoagulants; Z79.899 Other long term (current) drug therapy; Z86.16 Personal history of COVID-19
CPT/HCPCS: 36415; 70450; 72125; 80053; 83735; 84484; 85025; 85610; 85730; 93005; 99284

== ENCOUNTER 2024-01-25 13:56 | Emergency (ER) | payer MEDICARE, MEDICAID ==
[2024-01-25] MEDS ORDERED: Sodium Chloride 0.9% 10 ML Syringe FLUSH PRN (14:00)
[2024-01-25] MEDS ORDERED: Potassium Chloride 10 MEQ Tab.ER PO ONE (14:23)
[2024-01-25] MEDS ORDERED: D5 1/2 NS w/ 40 mEq/L KCl 1,000 ML IV SCH (14:30)
== END 2024-01-25 13:57 ==
LOC: DL.ED 13:56
DX: Z53.21 Procedure and treatment not carried out due to patient leaving prior to being seen by health care provider (principal)

== ENCOUNTER 2024-06-16 21:26 | Emergency (ER) | payer MEDICARE, MEDICAID ==
[2024-06-16] MEDS ORDERED: Sodium Chloride 0.9% 10 ML Syringe FLUSH PRN (21:37)
[2024-06-16 21:45] LABS: BASOPHILS PERCENT AUTO 0.2 % (0.0-1.0); EOSINOPHILS PERCENT AUTO 0.8 % (1.0-3.0); HEMATOCRIT 34.9 % (40.0-54.0); HEMOGLOBIN 12.4 g/dL (14.0-18.0); LYMPHOCYTES PERCENT AUTO 15.9 % (20.5-50.1); MEAN CORPUSCULAR HEMOGLOBIN 34.4 pg (27.0-34.0); MEAN CORPUSCULAR HGB CONC 35.5 g/dL (33.0-35.0); MEAN CORPUSCULAR VOLUME 96.9 fL (80-100); MONOCYTES PERCENT AUTO 35.5 % (2-8); NEUTROPHILS PERCENT AUTO 47.6 % (42.2-75.2); PLATELET COUNT,PLT 52 10^3/uL (150-450)
[2024-06-16 22:13] LABS: ALANINE AMINOTRANSFERASE,ALT 8 U/L (16-63); ALBUMIN 2.2 g/dL (3.4-5.0); ALKALINE PHOSPHATASE 49 U/L (46-116); ANION GAP 7.3 mEq/L (7-13); ASPARTATE AMNIOTRANSFERASE,AST 20 U/L (15-37); BILIRUBIN TOTAL 0.6 mg/dL (0.2-1.0); BLOOD UREA NITROGEN,BUN 21 mg/dL (7-18); BUN/CREATININE RATIO 16.4 (No establ ref range); CALCIUM 8.2 mg/dL (8.5-10.1); CARBON DIOXIDE,CO2 29 mmol/L (21-32); CHLORIDE,CL 103 mmol/L (98-107); CREATININE 1.28 mg/dL (0.70-1.30); GLUCOSE RANDOM 105 mg/dL (70-99); MAGNESIUM 1.7 mg/dL (1.8-2.4); POTASSIUM,K 3.3 mmol/L (3.5-5.1); PROTEIN TOTAL,TP 5.3 g/dL (6.4-8.2); SODIUM,NA 136 mmol/L (136-145)
[2024-06-16 22:14] LABS: A/G RATIO 0.71; ESTIMATED GFR 62 mL/min (>=60)
[2024-06-16] MEDS ORDERED: Lidocaine 2% Jelly 10 ML Urojet ONE (22:20)
[2024-06-16] MEDS: Lactated Ringers 1,000 ML IV ONE (22:32)
[2024-06-16 22:36] LABS: INR 3.2 (0.9-1.2); PROTHROMBIN TIME 30.9 SEC (9.0-12.0)
[2024-06-16] MEDS: Iopamidol 755 Mg/ML 100 ML Bottle IVPUSH ONE (23:28)
[2024-06-17] MEDS: Lidocaine 2% Jelly 10 ML Urojet MUCMEM ONE (00:23)
[2024-06-17 00:27] LABS: APPEARANCE,URINE CLEAR (CLEAR); BILIRUBIN,URINE NEGATIVE (NEGATIVE); COLOR,URINE YELLOW (YELLOW); GLUCOSE,URINE NEGATIVE (NEGATIVE); KETONES,URINE NEGATIVE (NEGATIVE); LEUKOCYTE ESTERASE,URINE NEGATIVE (NEGATIVE); NITRITE,URINE NEGATIVE (NEGATIVE); OCCULT BLOOD,URINE NEGATIVE (NEGATIVE); PH,URINE 6.5 (5.0-9.0); PROTEIN,URINE NEGATIVE (NEGATIVE)
[2024-06-17] MEDS: Hydrocortisone Sodium Succinate 100 MG/2 ML SDV IVPUSH ONE (01:41)
[2024-06-17] MEDS: Piperacillin/Tazobactam 4.5 GM in Sodium Chloride 0.9% 100 ML IV ONE (01:47)
== END 2024-06-17 04:18 ==
LOC: DL.ED 21:26
DX: R57.9 Shock, unspecified (principal); I12.9 Hypertensive chronic kidney disease with stage 1 through stage 4 chronic kidney disease, or unspecified chronic kidney disease; N18.9 Chronic kidney disease, unspecified; Z88.8 Allergy status to other drugs, medicaments and biological substances; Z79.899 Other long term (current) drug therapy; Z79.01 Long term (current) use of anticoagulants; Z86.16 Personal history of COVID-19
CPT/HCPCS: 36415; 70450; 71045; 71260; 72125; 74177; 80053; 81003; 83605; 83735; 85025; 85610; 86850; 86900; 86901; 87040; 93005; 93010; 94762; 96365; 96366; 96368; 96375; 99285; A9270; J1720; J2543; J2598; J7120; Q9967